=== PATIENT | female | born 1965 | race Caucasian/White ===

== ENCOUNTER 2017-01-25 22:37 | Emergency (ER) | payer MEDICAID ==
[2017-01-25 22:44] VITALS: O2SAT 98
[2017-01-25 23:18] LABS: BASO # 0.1 K/uL (0.0-0.2); BASO % 0.9 % (0.0-2.0); EOS # 0.1 K/uL (0.0-0.7); EOS % 2.1 % (0.0-4.0); HEMOGLOBIN 13.5 g/dL (11.0-16.0); LYMPH # 2.4 K/uL (1.0-4.3); LYMPH % 33.9 % (20.0-40.0); MEAN CELL VOLUME 90.4 fL (81.0-99.0); MEAN CORPUSCULAR HEMOGLOBIN 30.2 pg (27.0-31.0); MEAN CORPUSCULAR HGB CONC 33.4 g/dL (33.0-37.0); MEAN PLATELET VOLUME 9.9 fL (7.2-11.7); MONO # 0.6 K/uL (0.0-0.8); MONO % 9.2 % (0.0-10.0); NEUT # 3.7 K/uL (1.8-7.0); NEUT % 53.9 % (50.0-75.0); NRBC % 0.1 % (0.0-2.0); RBC 4.48 Mil/uL (3.80-5.20); RED CELL DISTRIBUTION WIDTH 13.1 % (11.5-14.5)
[2017-01-25 23:26] LABS: ALBUMIN 4.2 g/dL (3.5-5.0); PROTHROMBIN TIME 10.7 SECONDS (9.7-12.2)
[2017-01-25 23:29] LABS: ALB/GLOB RATIO 1.1 (1.0-2.1); ALT/SGPT 38 U/L (9-52); AST/SGOT 28 U/L (14-36); BLOOD UREA NITROGEN 26 mg/dL (7-17); GFR AFRICAN-AMERICAN > 60; GFR NON-AFRICAN AMERICAN > 60
[2017-01-25 23:30] LABS: CALCIUM 9.5 mg/dl (8.6-10.4)
--- NOTE | 2017-01-26 00:21 | C.PDOC ---
History Of Present Illness Patient presents to ED c/o injury to upper palate, states she was eating a piece of bread when she felt something sharp puncture her the roof of her mouth (left side) ENVIRONMENTAL COORDINATOR. Patient had immediately bleeding, and is currently c/o pain at area. She denies SOB, chest pain. Patient states her pain worsens when she closes her mouth. She denies PMHX. Time Seen by Provider: 01/25/17 22:45 Chief Complaint (Nursing): ENT Problem History Per: Patient History/Exam Limitations: clinical condition (difficulty speaking ) Current Symptoms Are (Timing): Still Present Severity: Mild Quality Of Discomfort: "Pain" Past Medical History Reviewed: Historical Data, Nursing Documentation, Vital Signs Vital Signs: Last Vital Signs Temp 98.1 F 01/26/17 01:13 Pulse 78 01/26/17 01:13 Resp 16 01/26/17 01:13 BP 124/79 01/26/17 01:13 Pulse Ox 98 01/26/17 01:13 - Medical History PMH: Hypercholesterolemia Surgical History: Cholecystectomy - [facility] Procedures OTHER SKIN & SUBQ I D (02/03/13) Family History: States: No Known Family Hx - Social History Hx Tobacco Use: No Hx Alcohol Use: No Hx Substance Use: No - Immunization History Hx Tetanus Toxoid Vaccination: No Hx Influenza Vaccination: Yes Hx Pneumococcal Vaccination: Yes Review Of Systems Except As Marked, All Systems Reviewed And Found Negative. Constitutional: Negative for: Fever, Chills ENT: Positive for: Other (pain, puncture left upper palate). Negative for: Mouth Swelling, Throat Pain Cardiovascular: Negative for: Chest Pain, Palpitations Respiratory: Negative for: Cough, Shortness of Breath Gastrointestinal: Negative for: Nausea, Vomiting, Abdominal Pain Physical Exam - Physical Exam Appears: Non-toxic, In Acute Distress (in mild discomfort ) Skin: Normal Color, Warm, Dry, No Rash Head: Normacephalic Nose: Normal Oral Mucosa: Moist, No Drooling, No Trismus Tongue: Normal Appearing, No Swelling Lips: Normal Appearing, No Swelling Throat: No Erythema, No Exudate, Other (clot visualized in left posterior hard palate with small punture wound, no palpable foreign/body mass, patient spitting up some saliva ) Cardiovascular: Rhythm Regular Respiratory: Normal Breath Sounds, No Rales, No Rhonchi, No Wheezing Neurological/Psych: Oriented x3 ED Course And Treatment - Laboratory Results Result Diagrams: 01/25/17 23:13 01/25/17 23:13 O2 Sat by Pulse Oximetry: 98 (RA) Pulse Ox Interpretation: Normal - CT Scan/US CT Maxillofacial Without Intravenous Contrast Other Rad Studies (CT/US): Read By Radiologist, Radiology Report Reviewed CT/US Interpretation: IMPRESSION: 1. No fracture. 2. No radiopaque foreign bodies. 3. Incidental/non-acute findings are described above. Progress Note: Blood work and maxillofacial CT scan ordered and reviewed. Reevaluation Time: 01:00 Reassessment Condition: Improved (On reassessment, patient is resting comfortably, no current bleeding/drooling. On exam, there is a clot (approx 1cm ) present at left upper palate, no papable FB. CT scan (-) for acute findings. Patient is well appearing, and states she feels better. She was given PO Augmentin and instructed to drink cool liquids only x 24 hours to allow clot/ pucture to heal without more bleeding. She was instructed to follow up with PMD in 1-2 days, and understands she should return to ED if she develops any concerning symptoms.) Disposition Counseled Patient/Family Regarding: Studies Performed, Diagnosis, Need For Followup, Rx Given - Disposition Referrals: Sarah Rolle [Staff Provider] - Disposition: HOME/ ROUTINE Disposition Time: 01:00 Condition: STABLE Additional Instructions: FOLLOW UP WITH YOUR DOCTOR IN 1-2 DAYS FLUIDS ONLY FOR 24 HOURS, NO HOT DRINKS RETURN TO ER IF YOU HAVE ANY CONCERNING SYMPTOMS TAKE ANTIBIOTICS UNTIL FINISHED Prescriptions: Acetaminophen [Tylenol 325mg tab] 650 mg PO Q6 PRN #30 tab PRN Reason: pain/fever Amoxicillin/Clavulanate [Augmentin 875 MG-125 MG] 1 tab PO BID #14 tab Instructions: Laceration (ED) Print Language: GUINEAN - POA Present On Arrival: None - Clinical Impression Clinical Impression: Puncture wound of palate
--- NOTE | 2017-01-26 00:54 | CT ---
EXAM: CT Maxillofacial Without Intravenous Contrast CLINICAL HISTORY: 51 years old, female; Pain; Jaw pain; Patient HX: 8-20-16; Additional info: Puncture to hard palate, R/O foreign body TECHNIQUE: Axial computed tomography images of the face without intravenous contrast. This CT exam was performed using one or more of the following dose reduction techniques: automated exposure control, adjustment of the mA and/or kV according to patient size, and/or use of iterative reconstruction technique. Coronal and sagittal reformatted images were created and reviewed. COMPARISON: No relevant prior studies available. FINDINGS: Bones/joints: No acute fracture. Soft tissues: No radiopaque foreign bodies. Orbits: Unremarkable. Sinuses: Scattered minimal to mild mucosal thickening. No air-fluid levels. Dental: Dental lucie. IMPRESSION: 1. No fracture. 2. No radiopaque foreign bodies. 3. Incidental/non-acute findings are described above.
[2017-01-26] MEDS ORDERED: Amoxicillin-Clav 875-125 mg Tab PO STA (01:01)
[2017-01-26] MEDS ORDERED: Amoxicillin-Clav 875-125 mg Tab PO ONE (01:10)
[2017-01-26 01:14] VITALS: BP 124/79; PULSE 78; RESP 16; TEMP 98.1
== END 2017-01-26 01:14 | disposition home or self-care (01) ==
LOC: C.ER 22:37
DX: S01.532A Puncture wound without foreign body of oral cavity, initial encounter (principal); X58.XXXA Exposure to other specified factors, initial encounter; E78.00 Pure hypercholesterolemia, unspecified

== ENCOUNTER 2017-06-29 11:57 | Emergency (ER) | payer MEDICAID ==
[2017-06-29 12:18] VITALS: O2SAT 100
--- NOTE | 2017-06-29 13:12 | C.PDOC ---
History Of Present Illness 51yo female, presents to ED for evaluation of left wrist and right arm pain after a fall prior to arrival. Patient denies any head injury, loss of consciousness. She also has an additional complaint of right knee pain. Denies any weakness, numbness or other medical complaints. 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) History/Exam Limitations: no limitations Onset/Duration Of Symptoms: Mins Current Symptoms Are (Timing): Still Present Quality: "Pain" Past Medical History Reviewed: Historical Data, Nursing Documentation, Vital Signs Vital Signs: Last Vital Signs Temp 97.8 F 06/29/17 12:06 Pulse 55 L 06/29/17 12:06 Resp 14 06/29/17 12:06 BP 160/79 H 06/29/17 12:06 Pulse Ox 100 06/29/17 14:35 - Medical History PMH: Hypercholesterolemia Denies: Chronic Kidney Disease Surgical History: Cholecystectomy - [facility] Procedures OTHER SKIN & SUBQ I D (02/03/13) Family History: States: No Known Family Hx - Social History Hx Tobacco Use: No Hx Alcohol Use: No Hx Substance Use: No - Immunization History Hx Tetanus Toxoid Vaccination: No Hx Influenza Vaccination: Yes Hx Pneumococcal Vaccination: Yes Review Of Systems Musculoskeletal: Positive for: Arm Pain (right arm), Hand Pain (left wrist), Other (right knee pain) Neurological: Negative for: Weakness, Numbness Physical Exam - Physical Exam Appears: Non-toxic, Other (uncomfortable) Skin: Normal Color Neck: Supple Extremity: Normal ROM (patient able to move bilateral upper extremities with mild discomfort), No Deformity, Swelling (swelling noted to left hand) Neurological/Psych: Oriented x3, Normal Speech, Normal Cognition ED Course And Treatment O2 Sat by Pulse Oximetry: 100 (RA) Pulse Ox Interpretation: Normal - Other Rad XR Left Hand X-Ray: Viewed By Me, Read By Radiologist Interpretation: No acute fracture, dislocation, signifcant effusion noted. Medical Decision Making Medical Decision Making: Impression: Upper extremity injury s/p fall Plan: -- Tylenol PO -- Motrin PO -- XR Left Hand Disposition - Disposition Referrals: [facility] [Outside] Disposition: HOME/ ROUTINE Disposition Time: 14:35 Condition: STABLE Prescriptions: Ibuprofen [Motrin] 600 mg PO TID #15 tab Instructions: Contusion in Adults (ED), RICE Therapy (ED) Forms: [facility] ([place]), General Discharge Instructions, Work Excuse - POA Present On Arrival: None - Clinical Impression Clinical Impression: Contusion - Scribe Statement The provider has reviewed the documentation as recorded by the Harjeet Bae Provider Attestation: All medical record entries made by the Harjeet were at my direction and personally dictated by me. I have reviewed the chart and agree that the record accurately reflects my personal performance of the history, physical exam, medical decision making, and the department course for this patient. I have also personally directed, reviewed, and agree with the discharge instructions and disposition.
--- NOTE | 2017-06-29 14:31 | RAD ---
PROCEDURE: Left Hand Radiographs. HISTORY: fall COMPARISON: None available. FINDINGS: BONES: No acute displaced fracture. JOINTS: No dislocation. SOFT TISSUES: Unremarkable. No evidence of radiopaque foreign body. OTHER FINDINGS: None. IMPRESSION: No acute displaced fracture, dislocation, or significant joint effusion identified. If symptoms persist, or if there is continued clinical concern, x-ray follow-up in 7-10 days should be considered.
[2017-06-29 15:01] VITALS: BP 135/84; PULSE 58; RESP 16; TEMP 98.1
== END 2017-06-29 15:01 | disposition home or self-care (01) ==
LOC: C.ER 11:57
DX: S60.212A Contusion of left wrist, initial encounter (principal); W18.30XA Fall on same level, unspecified, initial encounter